=== PATIENT | male | born 1940 | race Caucasian/White ===

== ENCOUNTER → 2025-07-25 09:37 | Outpatient (REF) | payer OTHER, SELFPAY | LOC: HWRAD 09:37 | PROVIDERS: ATTENDING PHYSICIAN Specialist; FAMILY PHYSICIAN Family Medicine | DX: M25.511 Pain in right shoulder (principal) | CPT/HCPCS: 73200 ==

== ENCOUNTER 2025-08-01 09:21 | Inpatient (IN) | payer OTHER, SELFPAY ==
--- NOTE | 2025-07-21 13:47 | CM ---
Demographics: confirmed
[facility] situation: [facility]
Support Person Post Operatively: , daughter
History of
VN: No
SNF: No
Outpatient: pending surgical clearance
Has patient purchased required equipment: sling
PCP: Maranda
Pharmacy: [facility]
Post Operative Discharge Plan: ELISA, pending OT evaluation.
[2025-07-24 13:54] VITALS: BMI 28.7
[2025-07-24 14:07] LABS: Hematocrit 40.7 % (39.0-52.0); Hemoglobin 14.2 g/dL (13.0-18.0); Mean Corp Hgb Conc. 34.9 g/dL (33.0-37.0); Mean Corpuscular Volume 91.1 fL (80.0-94.0); Platelet Count 233 10^3/uL (130-400); Red Cell Dist. Width 12.6 % (11.5-14.5)
[2025-07-24 14:31] LABS: Glycohemoglobin (HgbA1c) 5.6 % (4.0-5.9)
[2025-07-24 15:14] LABS: ALT (SGPT) 19 U/L (0-50); AST (SGOT) 25 U/L (17-59); Albumin 4.6 g/dl (3.5-5.0); Alkaline Phosphatase 47 U/L (38-126); Blood Urea Nitrogen 19 mg/dl (9-20); Calcium 9.4 mg/dl (8.4-10.2); Carbon Dioxide 30 mmol/L (22-30); Chloride 97 mmol/L (98-107); Estimated Creatinine Clearance 80 ml/min; Glucose 78 mg/dl (70-99); Potassium 4.5 mmol/L (3.5-5.1); Sodium 131 mmol/L (135-145); Total Protein 7.5 g/dl (6.3-8.2); eGFR > 60.00
[2025-07-25 09:59] VITALS: BMI 28.7
[2025-07-25 16:17] VITALS: BMI 28.7
[2025-08-01] VITALS (9 sets, daily range): BP systolic 114–142; BP diastolic 55–78
--- NOTE | 2025-08-01 07:38 | W.PN.UPDATE ---
Update Note
Progress Note Update
L shoulder OA w/ RC arthropathy s/p L Reverse TSA w/ Dr Bower 08/01/25
- s/p R TKA, 2021 and L TKA, 2017, by Dr Grigsby; R Reverse TSA, 2020, by Dr Bower
DVT prophylaxis - ASA, b/l venous foot pumps
Jgf-bmruwid-rdtizcxnj diabetes, A1c 5.6 - diet controlled - monitor BS
- add SSI AC, low dose Lantus to accommodate for potential BS elevations while on Decadron for post-surgical inflammation (Benefit of med outweighs risk)
Ambulatory dysfunction - fall precautions
Multilevel degenerative disc disease with radiculopathy - add Gabapentin HS
Daily alcohol - 1 drink reported daily
- Supplement w/ thiamine and folic acid
- Add Gabapentin HS
- Consider Serax
- Monitor for potential s/sx of withdrawal
HLD
Lumbar stenosis
Squamous cell carcinoma, status post MOHS
Anxiety
Depression
ADHD
Insomnia
Mild hyponatremia, asymptomatic
History of tobacco abuse
[2025-08-01] MEDS: TYLENOL 1000 MG PO (10:30)
[2025-08-01] MEDS: CELEBREX 200 MG PO (10:30)
[2025-08-01] MEDS: NORMOSOL-R/PLASMALYTE-A 1000 IV (10:52)
--- NOTE | 2025-08-01 16:05 | PTCARENOTE ---
Patient admitted from [facility] post left reverse total shoulder.The patient is alert and oriented.He rates his pain at a 1 to a 2 out of 10.The left shoulder dressing is intact without drainage.Neurovascular assessment is within normal limits and
ongoing.Vital signs are stable.The patient is in his bed with the call hammond in reach.
[2025-08-01] MEDS: NSS 1000 IV (16:36)
[2025-08-01] MEDS: VITAMIN B1 100 MG PO (17:10)
[2025-08-01] MEDS: TYLENOL 650 MG PO ×3 (17:10→23:43)
[2025-08-01] MEDS: FOLVITE 0.5 MG PO (17:10)
[2025-08-01] MEDS: LIPITOR 10 MG PO (17:10)
[2025-08-01] MEDS: ASPIRIN 325 MG PO (17:10)
[2025-08-01] MEDS: CELEXA 20 MG PO (17:16)
[2025-08-01] MEDS: PROTONIX 40 MG PO (17:16)
[2025-08-01] MEDS: VITAMIN D3 (cholecalciferol) 25 MCG PO (17:17)
[2025-08-01 17:26] LABS: Glucose - Point of Care 123 mg/dl (70-99)
[2025-08-01] MEDS: DECADRON 4 MG PO (19:16)
[2025-08-01] MEDS: ANCEF 5 IV (19:16)
[2025-08-01] MEDS: BACTROBAN 2% OINTMENT 1 APPLIC NASAL (19:16)
[2025-08-01] MEDS: SENOKOT 17.2 MG PO (19:17)
[2025-08-01] MEDS: COLACE 100 MG PO (19:17)
[2025-08-01 20:48] LABS: Glucose - Point of Care 157 mg/dl (70-99)
[2025-08-01] MEDS: NEURONTIN 300 MG PO (21:07)
[2025-08-02 03:00] VITALS: BP 122/57
--- NOTE | 2025-08-02 03:17 | DOWNTIME ---
There was a [employer] Downtime on 08/02/2025 from 0100 to 08/02/2025 at 0255. Downtime documentation of patient's care, including medication administrations, has been reconciled in the electronic record per guidelines. Refer to the
patient's paper chart under the miscellaneous tab to see printed paper medication records and downtime forms.
[2025-08-02] MEDS: TYLENOL 650 MG PO (04:07)
[2025-08-02] MEDS: ANCEF 5 IV (04:08)
[2025-08-02 07:13] LABS: Glucose - Point of Care 148 mg/dl (70-99)
[2025-08-02 07:50] VITALS: BP 111/54
[2025-08-02] MEDS: VITAMIN D3 (cholecalciferol) 25 MCG PO (08:35)
[2025-08-02] MEDS: PROTONIX 40 MG PO (08:35)
[2025-08-02] MEDS: CELEXA 20 MG PO (08:35)
[2025-08-02] MEDS: VITAMIN B1 100 MG PO (08:35)
[2025-08-02] MEDS: ASPIRIN 325 MG PO (08:35)
[2025-08-02] MEDS: LIPITOR PO ×2 (08:35→08:47)
[2025-08-02] MEDS: COLACE 100 MG PO (08:36)
[2025-08-02] MEDS: FOLVITE 0.5 MG PO (08:36)
[2025-08-02] MEDS: DECADRON 4 MG PO (08:36)
[2025-08-02] MEDS: MOBIC 15 MG PO (08:36)
[2025-08-02] MEDS: SENOKOT 17.2 MG PO (08:36)
[2025-08-02] MEDS: BACTROBAN 2% OINTMENT 1 APPLIC NASAL (08:37)
[2025-08-02] MEDS: TYLENOL PO (08:47)
--- NOTE | 2025-08-02 09:44 | W.PN.ORTHO ---
Today's Communication / Plan
-
D/c today since clinically stable, did well w/ OT.
Assessment
.
Distal Motor Intact: Yes
Dressing:
Clean, dry and intact.
Assessment:
L shoulder OA w/ RC arthropathy s/p L Reverse TSA w/ Dr Bower 08/01/25
- s/p R TKA, 2021 and L TKA, 2017, by Dr Grigsby; R Reverse TSA, 2020, by Dr Bower
DVT prophylaxis - ASA, b/l venous foot pumps
Nhw-xupmwly-tkrefomds diabetes, A1c 5.6 - diet controlled - BS readings well controlled w/ measures below
- Added SSI AC, low dose Lantus to accommodate for potential BS elevations while on Decadron for post-surgical inflammation (Benefit of med outweighs risk)
Ambulatory dysfunction - fall precautions
Multilevel degenerative disc disease with radiculopathy - added Gabapentin HS
Daily alcohol - 1 drink reported daily
- Supplement w/ thiamine and folic acid
- Added Gabapentin HS
- Consider Serax
- No s/sx of withdrawal during admission
HLD
Lumbar stenosis
Squamous cell carcinoma, status post MOHS
Anxiety
Depression
ADHD
Insomnia
Mild hyponatremia, asymptomatic
History of tobacco abuse
Plan
.
Surgery / Date: L Reverse TSA w/ Dr Bower 08/01/25
DVT Prophylaxis: Aspirin
Activity:
Out of bed.
PT/OT
Discharge Plan: Home
Subjective
.
.:
Patient resting comfortably in his bed.
Finished up w/ OT and did well.
L shoulder pain minimal w/ current pain meds.
Denies any new significant complaints.
Eager for potential d/c today.
Vital Signs and Labs
.
Vital Signs and Labs:
Lab Results
07/24/25 12:37
07/24/25 12:37
Temp Pulse Resp BP Pulse Ox
98.1 F 69 16 111/54 98
08/02/25 07:50 08/02/25 07:50 08/02/25 07:50 08/02/25 07:50 08/02/25 07:50
Non-invasive Hgb result: 15.1
Physical Exam
-
HEENT: No pallor, cyanosis, or jaundice. Throat clear.
NECK: Supple. No JVD.
RESPIRATORY: Lungs clear to auscultation.
CVS: S1, S2 normal. RRR.�
ABDOMEN: Soft, non-tender. No distension.
EXTREMITIES: + LUE sling. Able to wiggle fingers b/l. 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 Strength equal, no calf pain with palpation/dorsiflexion. Calves soft.
RN WOUND: AOx3. No focal deficits. 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
--- NOTE | 2025-08-02 09:49 | CM ---
Chart reviewed and patient is for discharge to home today with his spouse no needs. Per patient his spouse is at the infusion center and will pick him up at 11:30am.
Plan; Home with spouse no needs.
--- NOTE | 2025-08-02 09:53 | W.DS.TRANS ---
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
-
Discharge Instructions:
Sleep Apnea Risk Intermediate
Discharge Diagnosis/Procedures L shoulder OA w/ RC arthropathy s/p L Reverse
BREEZY w/ Dr Bower 08/01/25
Diet Diabetic, Carb Controlled
Additional Diets Adequate hydration, minimize opioids, and wear
TEDs stockings to prevent low blood pressure/
dizziness
Activity As tolerated
Additional Activity Non-weightbearing left upper extremity
Driving Restrictions Not until seen by your Dr
Bathing Restrictions OK to Shower
Wound Care Leave dressing on until seen by surgeon's office
for follow-up.
Instructions:
Stand-Alone Forms: Total Shoulder Replacement D/C
Changes to Home Medications: Yes
Discharge Medications:
DC Medications w/original date entered in [facility]
Cinnamon 1,000 mg PO DAILY Supplement 07/20/25
Slater 3 1 cap PO DAILY Supplement 07/20/25
Held on 08/02/25. Instructions: Resume on 08/08/25.
cholecalciferol (vitamin D3) 25 mcg (1,000 unit) capsule (Vitamin D3) 25 mcg PO DAILY Supplement 07/20/25
citalopram 20 mg tablet 20 mg PO DAILY Depression 07/20/25
coenzyme Q10 100 mg capsule 100 mg PO DAILY Supplement 07/20/25
Held on 08/02/25. Instructions: Resume on 08/08/25.
melatonin 10 mg tablet 10 mg PO HS PRN sleep 07/20/25
saw palmetto 450 mg capsule 450 mg PO DAILY Supplement 07/20/25
simvastatin 20 mg tablet 20 mg PO DAILY High Cholesterol 07/20/25
dexamethasone 4 mg tablet 4 mg PO BID inflammation #6 tabs 07/28/25
gabapentin 300 mg capsule 300 mg PO HS sleep/pain #10 caps 07/28/25
meloxicam 15 mg tablet 15 mg PO DAILY anti-inflammatory #14 tabs 07/28/25
mupirocin 2 % topical ointment 1 applic topical BID infection prevention #1 tube 07/28/25
ondansetron 4 mg disintegrating tablet 4 mg PO Q6H PRN n/v #20 tabs 07/28/25
oxycodone 5 mg tablet 5 mg PO Q6H PRN 1 tab moderate pain, 2 tabs severe pain #30 tabs 07/28/25
pantoprazole 40 mg tablet,delayed release (Protonix) 40 mg PO DAILY GI prophylaxis #30 tabs 07/28/25
acetaminophen 500 mg tablet (Acetaminophen Extra Strength) 1,000 mg (2 x 500 mg) PO Q6H #60 tabs 08/02/25
aspirin 325 mg tablet,delayed release (Ecotrin) 325 mg PO DAILY #30 tabs 08/02/25
docusate sodium 100 mg capsule 100 mg PO BID #30 caps 08/02/25
magnesium hydroxide 400 mg/5 mL oral suspension (Milk of Magnesia) 30 ml PO HS PRN constipation #3,780 mL 08/02/25
sennosides 8.6 mg tablet (Adriana-zulay) 17.2 mg (2 x 8.6 mg) PO BID #30 tabs 08/02/25
Home Medication Changes
dexamethasone 4 mg tablet 4 mg PO BID inflammation #6 tabs 07/28/25
gabapentin 300 mg capsule 300 mg PO HS sleep/pain #10 caps 07/28/25
meloxicam 15 mg tablet 15 mg PO DAILY anti-inflammatory #14 tabs 07/28/25
mupirocin 2 % topical ointment 1 applic topical BID infection prevention #1 tube 07/28/25
ondansetron 4 mg disintegrating tablet 4 mg PO Q6H PRN n/v #20 tabs 07/28/25
oxycodone 5 mg tablet 5 mg PO Q6H PRN 1 tab moderate pain, 2 tabs severe pain #30 tabs 07/28/25
pantoprazole 40 mg tablet,delayed release (Protonix) 40 mg PO DAILY GI prophylaxis #30 tabs 07/28/25
acetaminophen 500 mg tablet (Acetaminophen Extra Strength) 1,000 mg (2 x 500 mg) PO Q6H #60 tabs 08/02/25
aspirin 325 mg tablet,delayed release (Ecotrin) 325 mg PO DAILY #30 tabs 08/02/25
docusate sodium 100 mg capsule 100 mg PO BID #30 caps 08/02/25
magnesium hydroxide 400 mg/5 mL oral suspension (Milk of Magnesia) 30 ml PO HS PRN constipation #3,780 mL 08/02/25
sennosides 8.6 mg tablet (Adriana-zulay) 17.2 mg (2 x 8.6 mg) PO BID #30 tabs 08/02/25
Pending Results: No
[2025-08-02 11:04] VITALS: BP 118/60
== END 2025-08-02 12:32 | disposition home or self-care (01) | DRG 483 ==
LOC: 2 SOUTH 09:21
PROVIDERS: ADMITTING PHYSICIAN Specialist; FAMILY PHYSICIAN Family Medicine
PROC: 0RRK00Z Replacement of Left Shoulder Joint with Reverse Ball and Socket Synthetic Substitute, Open Approach (ICD-10-PCS; 2025-08-01)
DX: M19.012 Primary osteoarthritis, left shoulder (principal); E87.1 Hypo-osmolality and hyponatremia; E78.5 Hyperlipidemia, unspecified; E11.9 Type 2 diabetes mellitus without complications; R26.2 Difficulty in walking, not elsewhere classified; M54.10 Radiculopathy, site unspecified; F32.A Depression, unspecified; F41.9 Anxiety disorder, unspecified; G47.00 Insomnia, unspecified; M48.061 Spinal stenosis, lumbar region without neurogenic claudication; F90.9 Attention-deficit hyperactivity disorder, unspecified type; Z96.653 Presence of artificial knee joint, bilateral; Z96.611 Presence of right artificial shoulder joint; Z98.1 Arthrodesis status; Z87.891 Personal history of nicotine dependence; Z85.828 Personal history of other malignant neoplasm of skin
CPT/HCPCS: 36415; 73020; 80053; 82962; 83036; 85027; 87070; 93005; 97110; 97166; 97535; C1713; C1776

== ENCOUNTER 2025-09-11 07:26 | Outpatient (RCR) | payer OTHER, SELFPAY | END 2025-09-11 23:59 | disposition home or self-care (01) | LOC: RPT 07:26 | PROVIDERS: ATTENDING PHYSICIAN Specialist; FAMILY PHYSICIAN Family Medicine | DX: Z47.1 Aftercare following joint replacement surgery (principal); Z73.6 Limitation of activities due to disability; M25.512 Pain in left shoulder; M62.81 Muscle weakness (generalized); Z96.612 Presence of left artificial shoulder joint | CPT/HCPCS: 97010; 97110; 97140; 97162 ==